=== PATIENT | female | born 1960 | race Caucasian/White ===

== ENCOUNTER 2023-02-21 09:04 | Outpatient (CLI) | payer BC | END 2023-02-21 09:05 | disposition home or self-care (01) | LOC: ULT 09:04 | PROVIDERS: ATTEND Nurse Practitioner | DX: R10.814 Left lower quadrant abdominal tenderness (principal); K76.0 Fatty (change of) liver, not elsewhere classified | CPT/HCPCS: 76700 ==

== ENCOUNTER 2024-04-02 13:06 | Outpatient (CLI) | payer MEDICARE | END 2024-04-02 13:07 | disposition home or self-care (01) | LOC: MRI 13:06 | PROVIDERS: ATTEND Nurse Practitioner Family | DX: M41.9 Scoliosis, unspecified (principal); M47.816 Spondylosis without myelopathy or radiculopathy, lumbar region; M47.817 Spondylosis without myelopathy or radiculopathy, lumbosacral region | CPT/HCPCS: 72148 ==